=== PATIENT | male | born 1970 | race Caucasian/White ===

== ENCOUNTER 2020-03-24 20:23 | Emergency (ER) | payer MEDICAID, OTHER ==
[~2020-03-24] VITALS: Ht 182.9 cm; Wt 90.1 kg
[2020-03-24 20:24] VITALS: BP 144/96
== END 2020-03-24 20:58 ==
LOC: ER 20:23
DX: S00.211A Abrasion of right eyelid and periocular area, initial encounter (principal); V89.2XXA Person injured in unspecified motor-vehicle accident, traffic, initial encounter; Y93.89 Activity, other specified; Y92.89 Other specified places as the place of occurrence of the external cause; Y99.8 Other external cause status
CPT/HCPCS: 99283